=== PATIENT | male | born 1965 | race Caucasian/White ===

== ENCOUNTER 2023-10-06 07:06 | Day surgery (SDC) | payer BC ==
[2023-10-06] MEDS: Dextrose 5%-0.45% NaCl 1,000 ML IV SCH (07:35)
[2023-10-06] MEDS ORDERED: Midazolam 1 MG/ML 2 ML SDV ONE (07:39)
[2023-10-06] MEDS ORDERED: fentaNYL 100 MCG/2 ML SDV ONE (07:39)
[2023-10-06] MEDS: fentaNYL 100 MCG/2 ML SDV IV ONE ×2 (07:43→07:44)
[2023-10-06] MEDS: Midazolam 1 MG/ML 2 ML SDV IV ONE ×4 (07:44→07:58)
== END 2023-10-06 09:17 | disposition home or self-care (01) ==
LOC: DL.ENDO 07:06
PROVIDERS: ATTEND Internal Medicine Gastroenterology
DX: Z12.11 Encounter for screening for malignant neoplasm of colon (principal); K64.8 Other hemorrhoids; E66.9 Obesity, unspecified; Z88.6 Allergy status to analgesic agent
CPT/HCPCS: J2250; J3010; J7042